=== PATIENT | female | born 1935 | race Caucasian/White ===

== ENCOUNTER 2016-07-10 16:47 | Inpatient (IN) | payer MEDICARE, OTHER ==
[~2016-07-10] VITALS: Ht 167.6 cm; Wt 106.8 kg
[2016-07-10 18:40] LABS: HEMOGLOBIN 14.3 gm/dl (12.3-15.3); RED BLOOD COUNT 4.53 M/UL (4.00-5.10); WHITE BLOOD COUNT 12.8 K/UL (4.5-11.0)
[2016-07-10] MEDS ORDERED: ABILIFY 2 MG TAB2 MG PO (23:12)
[2016-07-10] MEDS ORDERED: BYSTOLIC10 MG PO (23:12)
[2016-07-10] MEDS ORDERED: FOLIC ACID 1 MG1 MG PO (23:13)
[2016-07-10] MEDS ORDERED: ZETIA10 MG PO (23:13)
[2016-07-10] MEDS ORDERED: ISOSORBIDE MONO30 MG PO (23:14)
[2016-07-10] MEDS ORDERED: MELATONIN1 MG PO (23:14)
[2016-07-10] MEDS ORDERED: METFORMIN HCL500 MG PO (23:14)
[2016-07-10] MEDS ORDERED: OMEPRAZOLE20 M1 PO (23:15)
[2016-07-10] MEDS ORDERED: MIRALAX17 GM PO (23:15)
[2016-07-10] MEDS ORDERED: SIMVASTATIN40 MG PO (23:16)
[2016-07-10] MEDS ORDERED: SERTRALINE HCL50 MG PO (23:16)
[2016-07-10] MEDS ORDERED: TRAMADOL HCL50 MG PO (23:17)
[2016-07-10] MEDS ORDERED: LANTUS100 UNIT/1 SQ ×2 (23:35→23:36)
[2016-07-10] MEDS ORDERED: ELIQUIS2.5 MG PO (23:35)
[2016-07-10] MEDS ORDERED: MEGACE400 MG/10 PO (23:36)
[2016-07-10] MEDS ORDERED: NAMENDA 5 MG TAB5 MG PO (23:37)
[2016-07-10] MEDS ORDERED: CARDIZEM 60MG T60 MG PO (23:37)
[2016-07-10] MEDS ORDERED: OXCARBAZEPINE150 MG PO (23:38)
[2016-07-10] MEDS ORDERED: MAPAP500 MG PO (23:40)
[2016-07-10] MEDS ORDERED: BISCOLAX10 MG PR (23:40)
[2016-07-10] MEDS ORDERED: LACTULOSE10 GM/151 PO (23:41)
[2016-07-10] MEDS ORDERED: KLONOPIN TAB 00.5 MG PO (23:41)
[2016-07-10] MEDS ORDERED: NYSTATIN1 EAC1 TOP (23:42)
[2016-07-10] MEDS ORDERED: ZINC OXIDE OINT30 GM EXT (23:43)
[2016-07-11 06:43] LABS: HEMOGLOBIN 14.6 gm/dl (12.3-15.3); RED BLOOD COUNT 4.64 M/UL (4.00-5.10); WHITE BLOOD COUNT 11.2 K/UL (4.5-11.0)
[2016-07-12 05:59] LABS: RED BLOOD COUNT 4.45 M/UL (4.00-5.10); WHITE BLOOD COUNT 11.2 K/UL (4.5-11.0)
[2016-07-13 05:26] LABS: HEMOGLOBIN 13.2 gm/dl (12.3-15.3); RED BLOOD COUNT 4.16 M/UL (4.00-5.10); WHITE BLOOD COUNT 10.1 K/UL (4.5-11.0)
== END 2016-07-13 17:30 | DRG 291 ==
LOC: ER1 16:47 → ZEROF 19:50 → M/S 21:16
PROVIDERS: Emergency Medicine; Physician Assistant; ADMIT Family Medicine
DX: I13.0 Hypertensive heart and chronic kidney disease with heart failure and stage 1 through stage 4 chronic kidney disease, or unspecified chronic kidney disease (principal); I50.43 Acute on chronic combined systolic (congestive) and diastolic (congestive) heart failure; J96.01 Acute respiratory failure with hypoxia; E11.22 Type 2 diabetes mellitus with diabetic chronic kidney disease; N18.3 Chronic kidney disease, stage 3 (moderate); I48.0 Paroxysmal atrial fibrillation; I25.5 Ischemic cardiomyopathy; I25.10 Atherosclerotic heart disease of native coronary artery without angina pectoris; E78.5 Hyperlipidemia, unspecified; R74.8 Abnormal levels of other serum enzymes; I27.2 Other secondary pulmonary hypertension; I08.0 Rheumatic disorders of both mitral and aortic valves; F01.50 Vascular dementia, unspecified severity, without behavioral disturbance, psychotic disturbance, mood disturbance, and anxiety; E66.9 Obesity, unspecified; F32.9 Major depressive disorder, single episode, unspecified; Z95.5 Presence of coronary angioplasty implant and graft; Z87.891 Personal history of nicotine dependence; Z86.73 Personal history of transient ischemic attack (TIA), and cerebral infarction without residual deficits; Z66 Do not resuscitate; Z72.3 Lack of physical exercise; Z68.36 Body mass index [BMI] 36.0-36.9, adult; Z79.01 Long term (current) use of anticoagulants; Z79.4 Long term (current) use of insulin; Z79.84 Long term (current) use of oral hypoglycemic drugs; Z79.1 Long term (current) use of non-steroidal anti-inflammatories (NSAID); Z79.818 Long term (current) use of other agents affecting estrogen receptors and estrogen levels; Z79.899 Other long term (current) drug therapy; Z88.8 Allergy status to other drugs, medicaments and biological substances; Z96.659 Presence of unspecified artificial knee joint; Z90.49 Acquired absence of other specified parts of digestive tract; Z98.890 Other specified postprocedural states
CPT/HCPCS: ECHO; 36415; 70450; 71010; 80048; 80053; 80202; 82550; 82553; 82962; 83874; 83880; 84484; 85025; 85027; 87040; 87077; 87186; 93005; 93306; 96374; 99285; J1940; J3370; J7070; Q0162